=== PATIENT | male | born 1995 | race Two or more races ===

== ENCOUNTER 2024-04-14 13:50 | Emergency (ER) | payer SELFPAY ==
[2024-04-14 14:16] VITALS: BP 105/50; PULSE 86; RESP 18; TEMP 98.9; BMI 29.0
[2024-04-14 16:23] LABS: BASO % 0.3 % (0-2.0); EOS % 1.8 % (0-4.5); HEMATOCRIT 43.7 % (35.4-49); HEMOGLOBIN 14.8 GM/dL (11.7-16.9); LYMPH % 26.6 % (8-40); MCH 29.1 pg (25.7-33.7); MCHC 33.9 g/dl (32.0-35.9); MEAN CELL VOLUME 85.7 fl (80-96); MEAN PLT VOLUME 8.2 fl (7.5-11.1); MONO % 6.7 % (3.8-10.2); NEUT % 64.6 % (42.8-82.8); PLATELET COUNT 291 10^3/uL (134-434); RDW 13.3 % (11.9-15.9); WHITE BLOOD COUNT 5.7 K/mm3 (4.0-10.0)
[2024-04-14 16:39] LABS: POTASSIUM 4.4 mmol/L (3.5-5.1)
[2024-04-14 16:42] LABS: ALBUMIN 4.2 g/dl (3.4-5.0); BLOOD UREA NITROGEN 16.3 mg/dL (7-18); CALCIUM 9.7 mg/dL (8.5-10.1)
[2024-04-14 16:45] LABS: CREATININE 1.1 mg/dL (0.55-1.3)
[2024-04-14 16:47] LABS: BILIRUBIN,TOTAL 0.4 mg/dL (0.2-1); TOT PROT 7.5 g/dl (6.4-8.2)
== END 2024-04-14 18:40 | disposition home or self-care (01) ==
LOC: JER 13:50
DX: R10.32 Left lower quadrant pain (principal); G89.29 Other chronic pain
CPT/HCPCS: 36415; 74177-TC; 80053; 83690; 85025; 99285-25; Q9967